=== PATIENT | female | born 1985 | race African-American/Black ===

== ENCOUNTER 2019-02-16 13:00 | Inpatient (IN) | payer OTHER ==
--- NOTE | 2019-02-16 14:30 | HP ---
CIWA Score Nausea/Vomitin-No Nausea/No Vomiting Muscle Tremors: 4-Moderate,w/Arms Extend Anxiety: 3 Agitation: 3 Paroxysmal Sweats: 3 Orientation: 0-Oriented Tacttile Disturbances: 0-None Auditory Disturbances: 0-None Visual Disturbances: 0-None Headache: 1-Very Mild CIWA-Ar Total Score: 14 - Admission Criteria OASAS Guidelines: Admission for Medically Managed Detox: Requires at least one of the followin. CIWA greater than 12 2. Seizures within the past 24 hours 3. Delirium tremens within the past 24 hours 4. Hallucinations within the past 24 hours 5. Acute intervention needed for co occurring medical disorder 6. Acute intervention needed for co occurring psychiatric disorder 7. Severe withdrawal that cannot be handled at a lower level of care (continued vomiting, continued diarrhea, abnormal vital signs) requiring intravenous medication and/or fluids 8. Admission ROS B[facility] - HPI Chief Complaint: I am here for help I have been drinking for a number of years and need alcohol for medicinal purpose. Allergies/Adverse Reactions: Allergies Allergy/AdvReac Type Severity Reaction Status Date / Time milk AdvReac Verified 02/16/19 14:26 Exam Limitations: No Limitations - Ebola screening Have you traveled outside of the country in the last 21 days: No Have you had contact with anyone from an Ebola affected area: No Have you been sick,other than usual withdrawal symptoms: No Do you have a fever: No - Review of Systems Constitutional: Diaphoresis, Night Sweats, Changes in sleep EENT: reports: No Symptoms Reported Respiratory: reports: No Symptoms reported Cardiac: reports: Lightheadedness, Syncope GI: reports: Diarrhea, Nausea, Poor Fluid Intake, Vomiting, Indigestion : reports: No Symptoms Reported Musculoskeletal: reports: No Symptoms Reported Integumentary: reports: Flushing, Sweating Neuro: reports: Headache, Tingling, Tremors Endocrine: reports: Flushing, Intolerance to Cold, Intolerance to Heat Hematology: reports: No Symptoms Reported Psychiatric: reports: Judgement Intact, Mood/Affect Appropiate, Orientated x3, Agitated, Anxious, Depressed Other Systems: Reviewed and Negative Patient History - Patient Medical History Hx Anemia: No Hx Asthma: No Hx Chronic Obstructive Pulmonary Disease (COPD): No Hx Cancer: No Hx Cardiac Disorders: No Hx Congestive Heart Failure: No Hx Hypertension: Yes (norvasc 10mg ) Hx Hypercholesterolemia: No Hx Pacemaker: No HX Cerebrovascular Accident: No Hx Seizures: No Hx Dementia: No Hx Diabetes: No Hx Gastrointestinal Disorders: No Hx Liver Disease: No Hx Genitourinary Disorders: No Hx Sexually Transmitted Disorders: No Hx Renal Disease (ESRD): No - Substances abused Alcohol Substance route: Oral Frequency: Daily Amount used: 2 PINTS Age of first use: 12 Date of last use: 02/16/19 Admission Physical Exam BHS - Vital Signs Vital Signs: Vital Signs - 24 hr 02/16/19 14:07 Temperature 96.7 F L Pulse Rate 111 H Respiratory 20 Rate Blood Pressure 134/84
--- NOTE | 2019-02-16 15:17 | PN ---
[facility] Progress Note Note: pt states she was at [facility] from February 11-2018 for alcohol dependence. pt has no s/s of withdrawals from alcohol dependence at this time. V /S wnl, CAROLINE 0. Pt has d/c papers from [facility] and it indicates that she was detox and she completed and to follow up with her psychiatrist for her anger issues and any other psychiatrist issues. pt does not meet criteria for detox and and rehab was offered if a bed was to be available, but pt stormed out requesting to go home and refused any referrals.
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
[2019-02-16] MEDS ORDERED: MAGNESIUM CITRATE 300 ML BOTTLE PO PRN (17:41)
[2019-02-16] MEDS ORDERED: MAG HYDROX/AL HYDROX/SIMETH 30 ML UNIT-DOSE CUP PO PRN (17:41)
[2019-02-16] MEDS ORDERED: guaiFENesin 200 MG/10 ML 10 ML UNIT-DOSE CUPS PO PRN (17:41)
[2019-02-16] MEDS ORDERED: P-EPHED 60MG/TRIPROLIDI 2.5MG TABLET PO PRN (17:41)
[2019-02-16] MEDS ORDERED: MENTHOL/PHENOL 1 EACH UD MM PRN (17:41)
[2019-02-16] MEDS ORDERED: hydrOXYzine PAMOATE 25 MG CAPSULE (FP) PO PRN (17:41)
[2019-02-16] MEDS: ACETAMINOPHEN 325 MG TABLET (FP) PO PRN (21:39)
[2019-02-16] MEDS ORDERED: MIRTAZAPINE 30 MG TABLET (FP) PO ONE (22:00)
[2019-02-16] MEDS: GABAPENTIN 400 MG CAPSULE (FP) PO SCH (22:39)
[2019-02-16] MEDS: THIAMINE HCL 100 MG TABLET (FP) PO SCH (22:54)
[2019-02-17 02:25] LABS: EPI CELLS 16.9 /HPF (0-5/HPF); HYALINE CASTS 4 /lpf (0-8); URINE APPEARANCE CLOUDY; URINE BACTERIA 1377.5 /hpf (NEGATIVE); URINE BILIRUBIN NEGATIVE (NEGATIVE); URINE COLOR YELLOW; URINE GLUCOSE (UA) NEGATIVE (NEGATIVE); URINE KETONE NEGATIVE (NEGATIVE); URINE LEUK ESTERASE 1+ (NEGATIVE); URINE NITRITE NEGATIVE (NEGATIVE); URINE PROTEIN NEGATIVE (NEGATIVE); URINE RBC 3 /hpf (0-4); URINE UROBILINOGEN 0.2 mg/dL (0.2-1.0); URINE WBC 14 /hpf (0-5)
[2019-02-17] MEDS: GABAPENTIN 400 MG CAPSULE (FP) PO SCH ×3 (07:23→22:05)
[2019-02-17] MEDS: IBUPROFEN 400 MG TABLET (FP) PO PRN ×2 (07:35→15:46)
[2019-02-17] MEDS ORDERED: NICOTINE POLACRILEX 2 MG GUM BUC PRN (08:26)
[2019-02-17] MEDS: amLODIPine BESYLATE 10 MG TABLET (FP) PO SCH (09:56)
[2019-02-17] MEDS: NICOTINE 14 MG/24 HOURS TOPICAL PATCH TD SCH (09:56)
[2019-02-17] MEDS: PRENATAL VITAMINS W/ FOLIC ACID TABLET (FP) PO SCH (09:57)
[2019-02-17] MEDS: LISINOPRIL 20 MG TABLET (FP) PO SCH (09:57)
[2019-02-17] MEDS: ACETAMINOPHEN 325 MG TABLET (FP) PO PRN (09:57)
[2019-02-17] MEDS: HYDROCHLOROTHIAZIDE 25 MG TABLET (FP) PO SCH (09:57)
[2019-02-17] MEDS ORDERED: [UNRECOGNIZED DRUG - OTHER] PO SCH (10:00)
[2019-02-17] MEDS ORDERED: HYDROCHLOROTHIAZIDE PO SCH (10:00)
[2019-02-17] MEDS ORDERED: LISINOPRIL PO SCH (10:00)
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
--- NOTE | 2019-02-17 11:18 | PN ---
[facility] Progress Note (SOAP) Subjective: Patient c/o pain, lower back left side. Does not report any injury. States it feels like a muscle strain. Hx of neuropathy, right side. Has tried tylenol and motrin with no reduction in pain. Unable to find comfortable position in bed. Objective: Left lower back maker to palpation. spine straight, no bruising or edema noted in area; patient is obese. 02/17/19 11:16 Assessment: Muscle strain Plan: Heating pad ordered, robaxin ordered, Lidoderm patch at night if needed, prn.
[2019-02-17] MEDS: LURASIDONE HCL 20 MG TABLET PO SCH (12:44)
[2019-02-17] MEDS: hydrOXYzine PAMOATE 50 MG CAPSULE (FP) PO PRN (12:46)
[2019-02-17] MEDS: RANITIDINE HCL 150 MG/10 ML UNIT-DOSE PO SCH (12:47)
[2019-02-17] MEDS: METHOCARBAMOL 500 MG TABLET PO SCH ×3 (13:44→22:04)
[2019-02-17] MEDS ORDERED: GABAPENTIN 400 MG CAPSULE (FP) PO SCH (14:00)
[2019-02-17 14:27] LABS: HEMATOCRIT 37.4 % (32.4-45.2); HEMOGLOBIN 12.2 GM/dL (10.7-15.3); MCHC 32.6 g/dl (32.0-36.0); MEAN CELL VOLUME 95.2 fl (80-96); MEAN PLT VOLUME 10.5 fl (7.5-11.1); PLATELET COUNT 174 K/MM3 (134-434); RBC 3.93 M/mm3 (3.60-5.2); RDW 15.7 % (11.6-15.6); WHITE BLOOD COUNT 8.6 K/mm3 (4.0-10.0)
[2019-02-17 15:09] LABS: ALBUMIN 3.8 g/dl (3.4-5.0); BILIRUBIN,TOTAL 0.4 mg/dL (0.2-1); CALCIUM 9.4 mg/dL (8.5-10.1); CREATININE 0.9 mg/dL (0.55-1.3); POTASSIUM 4.3 mmol/L (3.5-5.1); TOT PROT 7.7 g/dl (6.4-8.2)
[2019-02-17] MEDS ORDERED: LIDOCAINE 5% TOPICAL PATCH TP ONE (15:58)
[2019-02-17] MEDS ORDERED: IBUPROFEN 400 MG TABLET (FP) PO ONE (16:19)
[2019-02-17] MEDS ORDERED: LIDOCAINE 5% TOPICAL PATCH TP PRN (22:00)
[2019-02-17] MEDS: MIRTAZAPINE 15 MG TABLET (FP) PO SCH (22:04)
[2019-02-17] MEDS: LIDOCAINE PATCH REMOVAL MC SCH (22:04)
[2019-02-17] MEDS: METHYL SALICYLATE/MENTHOL OINT 30 GM TUBE TP SCH (22:04)
[2019-02-17] MEDS: THIAMINE HCL 100 MG TABLET (FP) PO SCH (22:05)
[2019-02-17] MEDS: MELATONIN 5 MG TABLETS PO PRN (22:05)
[2019-02-18] MEDS: LIDOCAINE PATCH REMOVAL MC SCH ×2 (06:44→21:21)
[2019-02-18] MEDS: GABAPENTIN 400 MG CAPSULE (FP) PO SCH ×3 (06:44→21:20)
[2019-02-18] MEDS: IBUPROFEN 600 MG TABLET (FP) PO PRN ×2 (07:37→22:02)
[2019-02-18] MEDS: METHYL SALICYLATE/MENTHOL OINT 30 GM TUBE TP SCH ×2 (09:46→21:21)
[2019-02-18] MEDS: METHOCARBAMOL 500 MG TABLET PO SCH ×4 (09:47→21:25)
[2019-02-18] MEDS: HYDROCHLOROTHIAZIDE 25 MG TABLET (FP) PO SCH (09:47)
[2019-02-18] MEDS: LISINOPRIL 20 MG TABLET (FP) PO SCH (09:47)
[2019-02-18] MEDS: PRENATAL VITAMINS W/ FOLIC ACID TABLET (FP) PO SCH (09:47)
[2019-02-18] MEDS: NICOTINE 14 MG/24 HOURS TOPICAL PATCH TD SCH (09:47)
[2019-02-18] MEDS: amLODIPine BESYLATE 10 MG TABLET (FP) PO SCH (09:47)
[2019-02-18] MEDS: LURASIDONE HCL 20 MG TABLET PO SCH (09:48)
[2019-02-18] MEDS: RANITIDINE HCL 150 MG/10 ML UNIT-DOSE PO SCH (09:49)
[2019-02-18] MEDS ORDERED: TUBERCULIN PPD 5 TU/0.1ML VIAL ID ONE (16:42)
[2019-02-18] MEDS: hydrOXYzine PAMOATE 50 MG CAPSULE (FP) PO PRN (20:00)
[2019-02-18] MEDS: MAGNESIUM HYDROX 2400MG/30ML ORAL SUSPENSION 30 ML CUP PO PRN (20:01)
[2019-02-18] MEDS: MIRTAZAPINE 15 MG TABLET (FP) PO SCH (21:20)
[2019-02-18] MEDS: MELATONIN 5 MG TABLETS PO PRN (21:20)
[2019-02-18] MEDS: THIAMINE HCL 100 MG TABLET (FP) PO SCH (21:20)
[2019-02-18] MEDS ORDERED: INSULIN (NOVOLOG) ASPART 100 UNITS/ML 10ML VIAL ONE (21:22)
[2019-02-18] MEDS: INSULIN SLIDING SCALE (NOVOLOG) 1 VIAL SQ SCH (21:24)
[2019-02-19] MEDS: GABAPENTIN 400 MG CAPSULE (FP) PO SCH ×3 (06:18→21:24)
[2019-02-19] MEDS: LIDOCAINE PATCH REMOVAL MC SCH ×2 (06:18→23:47)
[2019-02-19] MEDS: INSULIN SLIDING SCALE (NOVOLOG) 1 VIAL SQ SCH ×4 (06:19→21:02)
[2019-02-19] MEDS ORDERED: PT OWN MED DRAWER 7, Y5N ONE (08:46)
[2019-02-19] MEDS: LURASIDONE HCL 20 MG TABLET PO SCH (10:02)
--- NOTE | 2019-02-19 10:06 | PN ---
[facility] Progress Note Note: Patient has hx of DM. Currently on sliding scale coverage. Patient requested to have Hgb AIC test ordered to assess DM control. Will order Hgb AIC for tomorrow am. Laboratory Tests 02/16/19 02/17/19 02/17/19 15:00 00:00 07:23 WBC RBC Hgb Hct MCV MCH MCHC RDW Plt Count MPV Sodium Potassium Chloride Carbon Dioxide Anion Gap BUN Creatinine Est GFR (CKD-EPI)AfAm Est GFR (CKD-EPI)NonAf POC Glucometer 178 Random Glucose Calcium Total Bilirubin AST ALT Alkaline Phosphatase Total Protein Albumin Urine Color Yellow Urine Appearance Cloudy Urine pH 5.0 Ur Specific [place] 1.012 Urine Protein Negative Urine Glucose (UA) Negative Urine Ketones Negative Urine Blood Negative Urine Nitrite Negative Urine Bilirubin Negative Urine Urobilinogen 0.2 Ur Leukocyte Esterase 1+ H Urine WBC (Auto) 14 Urine RBC (Auto) 3 Urine Casts (Auto) 4 U Epithel Cells (Auto) 16.9 Urine Bacteria (Auto) 1377.5 POC Urine HCG, Qual Negative RPR Titer 02/17/19 02/17/19 02/17/19 08:40 08:40 08:40 WBC 8.6 RBC 3.93 Hgb 12.2 Hct 37.4 MCV 95.2 MCH 31.0 MCHC 32.6 RDW 15.7 H Plt Count 174 MPV 10.5 Sodium 135 L Potassium 4.3 Chloride 100 Carbon Dioxide 27 Anion Gap 8 BUN 14 Creatinine 0.9 Est GFR (CKD-EPI)AfAm 96.69 Est GFR (CKD-EPI)NonAf 83.42 POC Glucometer Random Glucose 193 H Calcium 9.4 Total Bilirubin 0.4 AST 107 H ALT 133 H Alkaline Phosphatase 95 Total Protein 7.7 Albumin 3.8 Urine Color Urine Appearance Urine pH Ur Specific [place] Urine Protein Urine Glucose (UA) Urine Ketones Urine Blood Urine Nitrite Urine Bilirubin Urine Urobilinogen Ur Leukocyte Esterase Urine WBC (Auto) Urine RBC (Auto) Urine Casts (Auto) U Epithel Cells (Auto) Urine Bacteria (Auto) POC Urine HCG, Qual RPR Titer Nonreactive 02/18/19 02/18/19 02/18/19 06:42 16:37 21:22 WBC RBC Hgb Hct MCV MCH MCHC RDW Plt Count MPV Sodium Potassium Chloride Carbon Dioxide Anion Gap BUN Creatinine Est GFR (CKD-EPI)AfAm Est GFR (CKD-EPI)NonAf POC Glucometer 374 424 452 Random Glucose Calcium Total Bilirubin AST ALT Alkaline Phosphatase Total Protein Albumin Urine Color Urine Appearance Urine pH Ur Specific [place] Urine Protein Urine Glucose (UA) Urine Ketones Urine Blood Urine Nitrite Urine Bilirubin Urine Urobilinogen Ur Leukocyte Esterase Urine WBC (Auto) Urine RBC (Auto) Urine Casts (Auto) U Epithel Cells (Auto) Urine Bacteria (Auto) POC Urine HCG, Qual RPR Titer 02/19/19 06:16 WBC RBC Hgb Hct MCV MCH MCHC RDW Plt Count MPV Sodium Potassium Chloride Carbon Dioxide Anion Gap BUN Creatinine Est GFR (CKD-EPI)AfAm Est GFR (CKD-EPI)NonAf POC Glucometer 139 Random Glucose Calcium Total Bilirubin AST ALT Alkaline Phosphatase Total Protein Albumin Urine Color Urine Appearance Urine pH Ur Specific [place] Urine Protein Urine Glucose (UA) Urine Ketones Urine Blood Urine Nitrite Urine Bilirubin Urine Urobilinogen Ur Leukocyte Esterase Urine WBC (Auto) Urine RBC (Auto) Urine Casts (Auto) U Epithel Cells (Auto) Urine Bacteria (Auto) POC Urine HCG, Qual RPR Titer Vital Signs Temperature 97.3 F L 02/19/19 06:00 Pulse Rate 74 02/19/19 06:00 Respiratory Rate 18 02/19/19 06:00 Blood Pressure 121/90 02/19/19 06:00 O2 Sat by Pulse Oximetry (%)
[2019-02-19] MEDS: NICOTINE 14 MG/24 HOURS TOPICAL PATCH TD SCH (10:08)
[2019-02-19] MEDS: HYDROCHLOROTHIAZIDE 25 MG TABLET (FP) PO SCH (10:08)
[2019-02-19] MEDS: PRENATAL VITAMINS W/ FOLIC ACID TABLET (FP) PO SCH (10:08)
[2019-02-19] MEDS: amLODIPine BESYLATE 10 MG TABLET (FP) PO SCH (10:10)
[2019-02-19] MEDS: METHOCARBAMOL 500 MG TABLET PO SCH ×4 (10:10→22:50)
[2019-02-19] MEDS: LISINOPRIL 20 MG TABLET (FP) PO SCH (10:10)
[2019-02-19] MEDS: RANITIDINE HCL 150 MG/10 ML UNIT-DOSE PO SCH (10:10)
[2019-02-19] MEDS: METHYL SALICYLATE/MENTHOL OINT 30 GM TUBE TP SCH ×2 (10:16→23:47)
[2019-02-19] MEDS: hydrOXYzine PAMOATE 50 MG CAPSULE (FP) PO PRN (14:40)
[2019-02-19] MEDS ORDERED: INSULIN (NOVOLOG) ASPART 100 UNITS/ML 10ML VIAL ONE ×2 (17:07→17:19)
--- NOTE | 2019-02-19 17:14 | PN ---
Psychiatric Progress Note Vital Signs: Vital Signs Period Temp Pulse Resp BP Sys/Sharif Pulse Ox Last 24 Hr 97.3 F 74 17-18 121/90 Date of Session: 02/19/19 Chief Complaint:: " i have been snapping alot at people." HPI: This is day four of rehab. Patient admitted to [facility] for alcohol depenence comorbid PTSD and Bipolar disorder. ROS: Patien coherent, calm, alert and oriented X3. Current Medications: Active Medications Generic Name Dose Route Start Last Admin Trade Name Freq PRN Reason Stop Dose Admin Acetaminophen 650 mg 02/16/19 17:41 02/17/19 09:57 Tylenol - PO 650 mg Q4H PRN Administration FEVER Al Hydroxide/Mg Hydroxide 30 ml 02/16/19 17:41 Mylanta Oral Suspension - PO Q6H PRN DYSPEPSIA Amlodipine Besylate 10 mg 02/17/19 10:00 02/19/19 10:10 Norvasc - PO 10 mg DAILY CAROLINE Administration Eucalyptus/Menthol/Phenol/Sorbitol 1 each 02/16/19 17:41 Cepastat Lozenge - MM Q4H PRN SORE THROAT Gabapentin 800 mg 02/16/19 22:00 02/19/19 14:39 Neurontin - PO 800 mg TID CAROLINE Administration Guaifenesin 10 ml 02/16/19 17:41 Robitussin - PO Q6H PRN COUGH Hydrochlorothiazide 25 mg 02/17/19 10:00 02/19/19 10:08 Hctz - PO 25 mg DAILY CAROLINE Administration Hydroxyzine Pamoate 50 mg 02/17/19 10:38 02/19/19 14:40 Vistaril - PO 50 mg Q4H PRN Administration ANXIETY Ibuprofen 600 mg 02/17/19 15:54 02/18/19 22:02 Motrin - PO 600 mg Q4H PRN Administration PAIN LEVEL 4 - 6 Insulin Aspart 1 vial 02/18/19 22:00 02/19/19 11:03 Novolog Vial Sliding Scale - SQ Not Given ACHS [facility] Protocol Lidocaine 1 patch 02/17/19 22:00 Lidoderm Patch - TP DAILY PRN BACK PAIN Lisinopril 20 mg 02/17/19 10:00 02/19/19 10:10 Prinivil PO 20 mg DAILY CAROLINE Administration Lurasidone HCl 20 mg 02/17/19 10:45 02/19/19 10:02 Latuda - PO 20 mg DAILY CAROLINE Administration Magnesium Citrate 300 ml 02/16/19 17:41 Citroma - PO Q48H PRN CONSTIPATION Magnesium Hydroxide 30 ml 02/16/19 17:41 02/18/19 20:01 Milk Of Magnesia - PO 30 ml DAILY PRN Administration CONSTIPATION Melatonin 5 mg 02/16/19 22:00 02/18/19 21:20 Melatonin PO 5 mg HS PRN Administration INSOMNIA Methocarbamol 500 mg 02/17/19 14:00 02/19/19 14:39 Robaxin - PO 500 mg QID CAROLINE Administration Methyl Salicylate 1 applic 02/17/19 22:00 02/19/19 10:16 Toney-Baires - TP Not Given BID CAROLINE Mirtazapine 15 mg 02/17/19 22:00 02/18/19 21:20 Remeron - PO 15 mg HS CAROLINE Administration Miscellaneous 1 each 02/18/19 06:00 02/19/19 06:18 Lidoderm Patch Removal MC 1 each DAILY@0600 CAROLINE Administration Miscellaneous 1 each 02/17/19 22:00 02/18/19 21:21 Lidoderm Patch Removal MC 1 each DAILY@2200 CAROLINE Administration Nicotine 14 mg 02/17/19 10:00 02/19/19 10:08 Nicoderm Patch - TD 14 mg DAILY CAROLINE Administration Nicotine Polacrilex 2 mg 02/17/19 08:26 Nicorette Gum - BUC Q2H PRN NICOTINE REPLACEMENT RX Multivit/Folic Acid/Iron 1 tab 02/17/19 10:00 02/19/19 10:08 Vitamins (Sjr) - PO 1 tab DAILY CAROLINE Administration Pseudoephedrine/Triprolidine 1 combo 02/16/19 17:41 Actifed - PO TID PRN NASAL CONGESTION Ranitidine HCl 75 mg 02/17/19 10:00 02/19/19 10:10 Zantac Oral Solution - PO 75 mg DAILY CAROLINE Administration Thiamine HCl 100 mg 02/16/19 22:00 02/18/19 21:20 Vitamin B1 - PO 100 mg HS CAROLINE Administration Medication(s) Change(s): No. Current Side Effect: No Lab tests ordered: No Lab tests reviewed: Yes Provider note:: Patient reports having difficulty controlling her temper on the unit and is requiring information on resuming lamital. Patient seen by Dr. Fish. Dr. Fish's note read and appreciated. Patient states that she used to be treated with lamictal, lexapro, remeron, gabapentin in 2017 but due to history of prolong QTC lamictal and lexapro was discontinued and she was than started on latuda. Mr. Rojo reports only taking latuda 20mg + remeron 15mg HS + Gabapentin 800mg TID for approximately 2-3 weeks. Patient informed of the importance of accepting medications for a longer period of time before determining its effectiveness. Patient informed of the importance of utilizing her coping skills to help manage her irritability while on the unit. Ms. Rojo also encouraged to accept vistaril 50mg as needed. Patient does report improve mood while on current medications. Patient satisifed and receptive to feedback. Total face to face time:: 25 Mental Status Exam - Mental Status Exam Alert and Oriented to: Time, Place, Person Cognitive Function: Good Patient Appearance: Well Groomed Mood: Hopeful, Euthymic Affect: Mood Congruent Patient Behavior: Cooperative Speech Pattern: Appropriate Voice Loudness: Normal Thought Process: Goal Oriented Thought Disorder: Not Present Hallucinations: Denies Suicidal Ideation: Denies Homicidal Ideation: Denies Insight/Judgement: Poor Sleep: Fair Appetite: Fair Muscle strength/Tone: Normal Gait/Station: Normal Psychiatric Treatment Plan - Problem List (1) Alcohol dependence Current Visit: Yes Qualifiers: Substance use status: uncomplicated Qualified Code(s): F10.20 - Alcohol dependence, uncomplicated (2) Alcohol-induced mood disorder Current Visit: Yes (3) Alcohol-induced sleep disorder Current Visit: Yes (4) Bipolar disorder Current Visit: Yes (5) PTSD (post-traumatic stress disorder) Current Visit: Yes
[2019-02-19] MEDS: THIAMINE HCL 100 MG TABLET (FP) PO SCH (21:22)
[2019-02-19] MEDS: MELATONIN 5 MG TABLETS PO PRN (21:23)
[2019-02-19] MEDS: MIRTAZAPINE 15 MG TABLET (FP) PO SCH (21:24)
[2019-02-19] MEDS: MAGNESIUM HYDROX 2400MG/30ML ORAL SUSPENSION 30 ML CUP PO PRN (21:26)
[2019-02-19] MEDS: ACETAMINOPHEN 325 MG TABLET (FP) PO PRN (22:50)
[2019-02-20] MEDS: LIDOCAINE PATCH REMOVAL MC SCH ×2 (06:32→21:43)
[2019-02-20] MEDS: GABAPENTIN 400 MG CAPSULE (FP) PO SCH ×3 (06:34→21:35)
[2019-02-20] MEDS: INSULIN SLIDING SCALE (NOVOLOG) 1 VIAL SQ SCH ×4 (07:48→21:43)
[2019-02-20] MEDS ORDERED: INSULIN (NOVOLOG) ASPART 100 UNITS/ML 10ML VIAL ONE ×3 (07:58→16:26)
[2019-02-20] MEDS ORDERED: PT OWN MED DRAWER 7, Y5N ONE ×3 (07:59→20:28)
[2019-02-20] MEDS: METHYL SALICYLATE/MENTHOL OINT 30 GM TUBE TP SCH ×2 (10:00→21:43)
[2019-02-20] MEDS: HYDROCHLOROTHIAZIDE 25 MG TABLET (FP) PO SCH (10:00)
[2019-02-20] MEDS: LURASIDONE HCL 20 MG TABLET PO SCH (10:00)
[2019-02-20] MEDS: NICOTINE 14 MG/24 HOURS TOPICAL PATCH TD SCH (10:01)
[2019-02-20] MEDS: PRENATAL VITAMINS W/ FOLIC ACID TABLET (FP) PO SCH (10:02)
[2019-02-20] MEDS: amLODIPine BESYLATE 10 MG TABLET (FP) PO SCH (10:02)
[2019-02-20] MEDS: LISINOPRIL 20 MG TABLET (FP) PO SCH (10:02)
[2019-02-20] MEDS: RANITIDINE HCL 150 MG/10 ML UNIT-DOSE PO SCH (10:03)
[2019-02-20] MEDS: METHOCARBAMOL 500 MG TABLET PO SCH ×4 (10:04→21:36)
[2019-02-20] MEDS: hydrOXYzine PAMOATE 50 MG CAPSULE (FP) PO PRN (10:52)
[2019-02-20] MEDS: MELATONIN 5 MG TABLETS PO PRN (21:35)
[2019-02-20] MEDS: THIAMINE HCL 100 MG TABLET (FP) PO SCH (21:35)
[2019-02-20] MEDS: MIRTAZAPINE 15 MG TABLET (FP) PO SCH (21:35)
[2019-02-21] MEDS: GABAPENTIN 400 MG CAPSULE (FP) PO SCH ×3 (06:34→21:26)
[2019-02-21] MEDS: LIDOCAINE PATCH REMOVAL MC SCH ×2 (06:34→21:29)
[2019-02-21] MEDS: INSULIN SLIDING SCALE (NOVOLOG) 1 VIAL SQ SCH ×4 (07:44→21:28)
[2019-02-21] MEDS ORDERED: INSULIN (NOVOLOG) ASPART 100 UNITS/ML 10ML VIAL ONE ×3 (07:47→16:40)
[2019-02-21] MEDS ORDERED: PT OWN MED DRAWER 7, Y5N ONE ×2 (07:47→08:57)
[2019-02-21] MEDS: RANITIDINE HCL 150 MG/10 ML UNIT-DOSE PO SCH (10:06)
[2019-02-21] MEDS: LISINOPRIL 20 MG TABLET (FP) PO SCH (10:07)
[2019-02-21] MEDS: LURASIDONE HCL 20 MG TABLET PO SCH (10:08)
[2019-02-21] MEDS: PRENATAL VITAMINS W/ FOLIC ACID TABLET (FP) PO SCH (10:08)
[2019-02-21] MEDS: HYDROCHLOROTHIAZIDE 25 MG TABLET (FP) PO SCH (10:08)
[2019-02-21] MEDS: amLODIPine BESYLATE 10 MG TABLET (FP) PO SCH (10:08)
[2019-02-21] MEDS: NICOTINE 14 MG/24 HOURS TOPICAL PATCH TD SCH (10:08)
[2019-02-21] MEDS: METHOCARBAMOL 500 MG TABLET PO SCH ×4 (10:09→21:29)
[2019-02-21] MEDS: METHYL SALICYLATE/MENTHOL OINT 30 GM TUBE TP SCH ×2 (10:09→21:29)
[2019-02-21] MEDS: hydrOXYzine PAMOATE 50 MG CAPSULE (FP) PO PRN (13:40)
[2019-02-21] MEDS: MIRTAZAPINE 15 MG TABLET (FP) PO SCH (21:26)
[2019-02-21] MEDS: THIAMINE HCL 100 MG TABLET (FP) PO SCH (21:26)
[2019-02-22] MEDS: GABAPENTIN 400 MG CAPSULE (FP) PO SCH ×3 (06:21→21:23)
[2019-02-22] MEDS: LIDOCAINE PATCH REMOVAL MC SCH ×2 (06:21→21:24)
[2019-02-22] MEDS: INSULIN SLIDING SCALE (NOVOLOG) 1 VIAL SQ SCH ×4 (07:37→21:24)
[2019-02-22] MEDS ORDERED: INSULIN (NOVOLOG) ASPART 100 UNITS/ML 10ML VIAL ONE ×3 (07:39→16:46)
[2019-02-22] MEDS ORDERED: PT OWN MED DRAWER 7, Y5N ONE ×2 (07:39→21:48)
[2019-02-22] MEDS: NICOTINE 14 MG/24 HOURS TOPICAL PATCH TD SCH (10:12)
[2019-02-22] MEDS: RANITIDINE HCL 150 MG/10 ML UNIT-DOSE PO SCH (10:13)
[2019-02-22] MEDS: LISINOPRIL 20 MG TABLET (FP) PO SCH (10:14)
[2019-02-22] MEDS: PRENATAL VITAMINS W/ FOLIC ACID TABLET (FP) PO SCH (10:14)
[2019-02-22] MEDS: amLODIPine BESYLATE 10 MG TABLET (FP) PO SCH (10:14)
[2019-02-22] MEDS: HYDROCHLOROTHIAZIDE 25 MG TABLET (FP) PO SCH (10:14)
[2019-02-22] MEDS: METHOCARBAMOL 500 MG TABLET PO SCH ×4 (10:14→21:24)
[2019-02-22] MEDS: METHYL SALICYLATE/MENTHOL OINT 30 GM TUBE TP SCH ×2 (10:15→21:21)
[2019-02-22] MEDS: LURASIDONE HCL 20 MG TABLET PO SCH (10:15)
[2019-02-22] MEDS: hydrOXYzine PAMOATE 50 MG CAPSULE (FP) PO PRN ×2 (10:16→21:24)
[2019-02-22] MEDS: MIRTAZAPINE 15 MG TABLET (FP) PO SCH (21:23)
[2019-02-22] MEDS: THIAMINE HCL 100 MG TABLET (FP) PO SCH (21:23)
[2019-02-23] MEDS: GABAPENTIN 400 MG CAPSULE (FP) PO SCH ×3 (06:45→21:37)
[2019-02-23] MEDS: LIDOCAINE PATCH REMOVAL MC SCH ×2 (07:03→21:36)
[2019-02-23] MEDS: INSULIN SLIDING SCALE (NOVOLOG) 1 VIAL SQ SCH ×4 (07:37→21:40)
[2019-02-23] MEDS ORDERED: INSULIN (NOVOLOG) ASPART 100 UNITS/ML 10ML VIAL ONE ×3 (07:38→23:11)
[2019-02-23] MEDS ORDERED: PT OWN MED DRAWER 7, Y5N ONE ×2 (07:39→08:19)
[2019-02-23] MEDS: hydrOXYzine PAMOATE 50 MG CAPSULE (FP) PO PRN ×3 (08:28→21:37)
[2019-02-23] MEDS: METHYL SALICYLATE/MENTHOL OINT 30 GM TUBE TP SCH (10:10)
[2019-02-23] MEDS: HYDROCHLOROTHIAZIDE 25 MG TABLET (FP) PO SCH (10:10)
[2019-02-23] MEDS: LURASIDONE HCL 20 MG TABLET PO SCH (10:10)
[2019-02-23] MEDS: NICOTINE 14 MG/24 HOURS TOPICAL PATCH TD SCH (10:11)
[2019-02-23] MEDS: amLODIPine BESYLATE 10 MG TABLET (FP) PO SCH (10:11)
[2019-02-23] MEDS: LISINOPRIL 20 MG TABLET (FP) PO SCH (10:12)
[2019-02-23] MEDS: PRENATAL VITAMINS W/ FOLIC ACID TABLET (FP) PO SCH (10:13)
[2019-02-23] MEDS: METHOCARBAMOL 500 MG TABLET PO SCH (10:14)
[2019-02-23] MEDS ORDERED: METHOCARBAMOL 500 MG TABLET PO PRN (10:24)
[2019-02-23] MEDS: RANITIDINE HCL 150 MG/10 ML UNIT-DOSE PO SCH (10:24)
[2019-02-23] MEDS ORDERED: HYDROCHLOROTHIAZIDE 25 MG TABLET (FP) PO SCH (11:00)
[2019-02-23] MEDS: THIAMINE HCL 100 MG TABLET (FP) PO SCH (21:36)
[2019-02-23] MEDS: MELATONIN 5 MG TABLETS PO PRN (21:37)
[2019-02-23] MEDS: MIRTAZAPINE 15 MG TABLET (FP) PO SCH (21:37)
[2019-02-24] MEDS: INSULIN SLIDING SCALE (NOVOLOG) 1 VIAL SQ SCH ×4 (06:41→21:38)
[2019-02-24] MEDS: GABAPENTIN 400 MG CAPSULE (FP) PO SCH ×3 (06:42→21:34)
[2019-02-24] MEDS: LIDOCAINE PATCH REMOVAL MC SCH ×2 (06:42→21:38)
[2019-02-24] MEDS: NICOTINE 14 MG/24 HOURS TOPICAL PATCH TD SCH (10:10)
[2019-02-24] MEDS: RANITIDINE HCL 150 MG/10 ML UNIT-DOSE PO SCH (10:10)
[2019-02-24] MEDS: PRENATAL VITAMINS W/ FOLIC ACID TABLET (FP) PO SCH (10:11)
[2019-02-24] MEDS: amLODIPine BESYLATE 10 MG TABLET (FP) PO SCH (10:11)
[2019-02-24] MEDS: LURASIDONE HCL 20 MG TABLET PO SCH (10:11)
[2019-02-24] MEDS: LISINOPRIL 20 MG TABLET (FP) PO SCH (10:11)
[2019-02-24] MEDS: HYDROCHLOROTHIAZIDE 12.5 MG CAPSULE (FP) PO SCH (10:11)
--- NOTE | 2019-02-24 11:48 | PN ---
S Progress Note (SOAP) Subjective: Patient will be discharged tomorrow. Objective: A+O x3, heart sounds regular, lungs clear, abd soft non-tender, non-distended, +BS. Lab Results WBC 8.6 K/mm3 (4.0-10.0) 02/17/19 08:40 RBC 3.93 M/mm3 (3.60-5.2) 02/17/19 08:40 Hgb 12.2 GM/dL (10.7-15.3) 02/17/19 08:40 Hct 37.4 % (32.4-45.2) 02/17/19 08:40 MCV 95.2 fl (80-96) 02/17/19 08:40 MCHC 32.6 g/dl (32.0-36.0) 02/17/19 08:40 RDW 15.7 % (11.6-15.6) H 02/17/19 08:40 Plt Count 174 K/MM3 (134-434) 02/17/19 08:40 Sodium 135 mmol/L (136-145) L 02/17/19 08:40 Potassium 4.3 mmol/L (3.5-5.1) 02/17/19 08:40 Chloride 100 mmol/L (98-107) 02/17/19 08:40 Carbon Dioxide 27 mmol/L (21-32) 02/17/19 08:40 Anion Gap 8 MMOL/L (8-16) 02/17/19 08:40 BUN 14 mg/dL (7-18) 02/17/19 08:40 Creatinine 0.9 mg/dL (0.55-1.3) 02/17/19 08:40 Random Glucose 193 mg/dL (74-106) H 02/17/19 08:40 Calcium 9.4 mg/dL (8.5-10.1) 02/17/19 08:40 02/24/19 11:43 CBC, BMP 02/17/19 08:40 02/17/19 08:40 Vital Signs (72 hours) 02/22/19 02/22/19 02/22/19 00:30 03:30 06:55 Temperature 97.7 F Pulse Rate 81 Respiratory 18 18 18 Rate Blood Pressure 124/86 02/22/19 02/23/19 02/23/19 09:13 00:30 03:30 Temperature Pulse Rate 86 Respiratory 17 16 Rate Blood Pressure 126/85 02/23/19 02/23/19 02/24/19 07:24 09:15 00:30 Temperature 97.4 F L Pulse Rate 80 77 Respiratory 17 18 18 Rate Blood Pressure 133/93 124/85 02/24/19 02/24/19 02/24/19 03:30 07:18 09:11 Temperature 97.7 F Pulse Rate 85 105 H Respiratory 18 18 Rate Blood Pressure 130/94 137/88 Assessment: Medically stable for discharge Discharge Dx: ETOH dependence, chronic HTN Neuropathy. DM 2 02/24/19 11:45 Plan: patient will be going to the [facility] in [facility] for aftercare. Will be receiving primary care at [facility] in [place]. Prescriptions transmitted to [facility].
[2019-02-24] MEDS ORDERED: INSULIN (NOVOLOG) ASPART 100 UNITS/ML 10ML VIAL ONE ×2 (11:49→16:50)
[2019-02-24] MEDS: MIRTAZAPINE 15 MG TABLET (FP) PO SCH (21:34)
[2019-02-24] MEDS: MELATONIN 5 MG TABLETS PO PRN (21:34)
[2019-02-24] MEDS: THIAMINE HCL 100 MG TABLET (FP) PO SCH (21:34)
[2019-02-24] MEDS: ACETAMINOPHEN 325 MG TABLET (FP) PO PRN (22:44)
[2019-02-25] MEDS: GABAPENTIN 400 MG CAPSULE (FP) PO SCH (06:34)
[2019-02-25] MEDS: LIDOCAINE PATCH REMOVAL MC SCH (06:35)
[2019-02-25 07:31] VITALS: TEMP 97.5
[2019-02-25] MEDS: INSULIN SLIDING SCALE (NOVOLOG) 1 VIAL SQ SCH (07:36)
[2019-02-25] MEDS ORDERED: INSULIN (NOVOLOG) ASPART 100 UNITS/ML 10ML VIAL ONE (07:45)
[2019-02-25] MEDS ORDERED: PT OWN MED DRAWER 7, Y5N ONE (08:28)
[2019-02-25] MEDS: HYDROCHLOROTHIAZIDE 12.5 MG CAPSULE (FP) PO SCH (09:02)
[2019-02-25] MEDS: amLODIPine BESYLATE 10 MG TABLET (FP) PO SCH (09:02)
[2019-02-25] MEDS: LISINOPRIL 20 MG TABLET (FP) PO SCH (09:02)
[2019-02-25] MEDS: PRENATAL VITAMINS W/ FOLIC ACID TABLET (FP) PO SCH (09:02)
[2019-02-25] MEDS: LURASIDONE HCL 20 MG TABLET PO SCH (09:02)
[2019-02-25] MEDS: NICOTINE 14 MG/24 HOURS TOPICAL PATCH TD SCH (09:03)
[2019-02-25] MEDS: RANITIDINE HCL 150 MG/10 ML UNIT-DOSE PO SCH (09:04)
[2019-02-25 09:32] VITALS: BP 131/86; PULSE 89
== END 2019-02-25 09:10 | disposition home or self-care (01) | DRG 772 ==
LOC: YASAS 13:00 → Y3E 17:05
PROVIDERS: ADMIT Neuromusculoskeletal Medicine & OMM; ATTEND Neuromusculoskeletal Medicine & OMM
PROC: HZ42ZZZ Group Counseling for Substance Abuse Treatment, Cognitive-Behavioral (ICD-10-PCS; principal; 2019-02-16)
DX: F10.20 Alcohol dependence, uncomplicated (principal); F10.920 Alcohol use, unspecified with intoxication, uncomplicated; F10.24 Alcohol dependence with alcohol-induced mood disorder; F10.282 Alcohol dependence with alcohol-induced sleep disorder; F31.9 Bipolar disorder, unspecified; F43.10 Post-traumatic stress disorder, unspecified; I10 Essential (primary) hypertension; E11.9 Type 2 diabetes mellitus without complications; Z79.4 Long term (current) use of insulin; S39.012A Strain of muscle, fascia and tendon of lower back, initial encounter
CPT/HCPCS: 36415; 80053; 81003; 81025; 82962; 83036; 85027; 86593